=== PATIENT | male | born 2005 | race Hispanic/Latino ===

== ENCOUNTER 2024-04-26 09:05 | Emergency (ER) | payer OTHER ==
[2024-04-26] MEDS ORDERED: ACETAMINOPHEN 500 MG TAB ONE (10:18)
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
[2024-04-26 10:58] VITALS: O2SAT 98
[2024-04-26 10:59] VITALS: BP 112/62
[2024-04-26 11:00] VITALS: TEMP 98
== END 2024-04-26 10:55 | disposition home or self-care (01) ==
LOC: ER 09:05
DX: S06.0X9A Concussion with loss of consciousness of unspecified duration, initial encounter (principal); V49.40XA Driver injured in collision with unspecified motor vehicles in traffic accident, initial encounter
CPT/HCPCS: 70450; 99283